=== PATIENT | female | born 1955 | race Caucasian/White ===

== ENCOUNTER 2016-10-05 06:09 | Day surgery (SDC) | payer BC ==
--- NOTE | ~2016-10-05 | EGD ---
EGD REPORT [facility] [address] [address] NAME: RICKY HILLS : [birth year] STATUS : REG [facility]#: [id number] AGE: 61 ADM/REG DATE : 10/05/16 MR#: [id number] REPORT SERV DATE: 10/05/16 DICTATED BY: PATRICIO SINHA DATE: 10/05/16 REPORT STATUS : Draft [facility]ANS[facility]ED BY: [facility] DATE: 10/05/16 [facility] Center Patient Name: Ricky Hills Date of : 1955 Attending MD: PATRICIO SINHA, Procedure Date No Time: 10/05/2016 Procedure: Upper GI endoscopy Indications: Heartburn, Esophageal reflux symptoms that persist despite appropriate therapy, Chronic cough Referring MD: SHIREEN KELLEY MD Medicines: Propofol per Anesthesia Complications: No immediate complications. Estimated blood loss: None. Procedure: Pre-Anesthesia Assessment: - ASA Grade Assessment: III - A patient with severe systemic disease. After obtaining informed consent, the endoscope was passed under direct vision. Throughout the procedure, the patient's blood pressure, pulse, and oxygen saturations were monitored continuously. The GIF [id number] was introduced through the mouth, and advanced to the second part of duodenum. The upper GI endoscopy was accomplished with ease. The patient tolerated the procedure well. Findings: A widely patent and mild Schatzki ring (acquired) was found at the lower esophageal sphincter. A 2 cm hiatus hernia was present. The Z-line was found 35 cm from the incisors. Diffuse moderate inflammation characterized by congestion (edema) and erythema was found in the gastric antrum. Biopsies were taken with a cold forceps for histology. Estimated blood loss: none. The duodenal bulb and 2nd part of the duodenum were normal. Impression: - Widely patent and mild Schatzki ring. - Hiatus hernia. - Z-line 35 cm from the incisors. - Gastritis. Biopsied. - Normal duodenal bulb and 2nd part of the duodenum. Recommendation: - Patient has a contact number available for emergencies. The signs and symptoms of potential delayed complications were discussed with the patient. Return to normal activities tomorrow. Written discharge instructions were provided to the patient. EGD REPORT [address] [place]. [address] NAME: RICKY HILLS : 51 STATUS : REG [facility] [place] PAT#: [id number] AGE: 61 ADM/REG DATE : 10/05/16 MR#: [id number] REPORT SERV DATE: 10/05/16 DICTATED BY: PATRICIO SINHA DATE: 10/05/16 REPORT STATUS : Draft TRANSCRIBED BY: [employer] DATE: 10/05/16 - Regular diet. - Discharge patient to home (with escort). - Follow an antireflux regimen. - No aspirin, ibuprofen, naproxen, or other non-steroidal anti-inflammatory drugs. - Use Prilosec (omeprazole) 40 mg PO daily. - Continue present medications. - Return to GI clinic in 6 weeks. Procedure Code(s): --- Professional --- 36548, Esophagogastroduodenoscopy, flexible, transoral; with biopsy, single or multiple Diagnosis Code(s): --- Professional --- K44.9, Diaphragmatic hernia without obstruction or gangrene K29.70, Gastritis, unspecified, without bleeding K22.2, Esophageal obstruction R12, Heartburn K21.9, Gastro-esophageal reflux disease without esophagitis R05, Cough CPT copyright 2013 [employer]. All rights reserved. The codes documented in this report are preliminary and upon medical billing coder review may be revised to meet current compliance requirements. PATRICIO SINHA, 10/05/2016 8:19 AM This report has been signed electronically. Number of Addenda: 0 Note Initiated On: 10/05/2016 7:51 AM Scope Withdrawal Time 0 hours 0 minutes 0 seconds [address] [place] [address]
[~2016-10-05 06:09] MED LIST: ACET500CAP PO; EEMT PO; HYZAAR 50/12.51 TAB PO; KLOR-CON M2020 MEQ PO; LIOR10 PO; PROAIR HFA INH; SYMBICORT 160/41 INH INH; VITAMIN D31000 UNIT; ZYRTEC ALLGY10 MG PO
== END 2016-10-05 23:59 | disposition home or self-care (01) ==
LOC: DMU 06:09
PROVIDERS: Internal Medicine Gastroenterology
PROC: 0DB68ZX Excision of Stomach, Via Natural or Artificial Opening Endoscopic, Diagnostic (ICD-10-PCS; principal; 2016-10-05 07:30)
DX: K21.9 Gastro-esophageal reflux disease without esophagitis (principal); K22.2 Esophageal obstruction; K44.9 Diaphragmatic hernia without obstruction or gangrene; K29.70 Gastritis, unspecified, without bleeding; R12 Heartburn; R05 Cough; I10 Essential (primary) hypertension; J45.909 Unspecified asthma, uncomplicated; Z85.42 Personal history of malignant neoplasm of other parts of uterus; Z85.43 Personal history of malignant neoplasm of ovary; Z90.710 Acquired absence of both cervix and uterus; Z98.890 Other specified postprocedural states; M19.90 Unspecified osteoarthritis, unspecified site; F41.9 Anxiety disorder, unspecified; Z98.891 History of uterine scar from previous surgery; Z88.5 Allergy status to narcotic agent; Z91.048 Other nonmedicinal substance allergy status; G25.81 Restless legs syndrome; Z79.899 Other long term (current) drug therapy
CPT/HCPCS: 88305